=== PATIENT | male | born 1960 | race African-American/Black ===

== ENCOUNTER 2017-01-08 17:28 | Emergency (ER) | payer OTHER ==
[2017-01-08 17:58] LABS: MANUAL DIFF NEEDED? NO
[2017-01-08 18:42] LABS: ALBUMIN 3.9 g/dL (3.5-5.0); CALCIUM 10.3 mg/dL (8.8-10.2); POTASSIUM 4.4 mmol/L (3.5-5.1); TOTAL BILIRUBIN 0.87 mg/dL (0.20-1.00); TOTAL PROTEIN 7.5 g/dL (6.3-8.3)
--- NOTE | 2017-01-08 18:53 | PROVIDER DOCUMENTATION ---
HPI-Abdominal Pain/GI Problem - General Chief Complaint: Abdominal Pain Stated Complaint: NAUSEA/ABD PAIN Time Seen by Provider: 01/08/17 18:47 Source: patient Allergies/Adverse Reactions: Patient Allergies Allergy/AdvReac Type Severity Reaction Status Date / Time sulfamethoxazole AdvReac Severe SWELLING Verified 01/08/17 22:22 [From Bactrim] trimethoprim [From Bactrim] AdvReac Severe SWELLING Verified 01/08/17 22:22 Home Medications: Home Medication List Medication Instructions Recorded Confirmed Last Taken Type SIMVAstatin [Zocor] 40 mg PO DAILY 11/10/12 01/08/17 12/08/16 History Fluticasone/Salmet 250/50 INH 1 puff INH DAILY 10/12/15 01/08/17 12/08/16 History [Advair 250/50 Diskus] Insulin Detemir [Levemir] 30 unit SQ DAILY 07/20/16 01/08/17 01/07/17 20:00 History Calcium Acetate 667 mg PO DAILY 07/22/16 01/08/17 12/08/16 History Hydrocodone/Acetaminophen [[place] 1 each PO Q4H PRN PRN #20 tablet 12/09/1601/08 Unknown Rx 7.5-325 Tablet] Cinacalcet HCl [Sensipar] 30 mg PO DAILY 01/08/17 01/08/17 Unknown History Hydralazine [Apresoline] 25 mg PO TID 01/08/17 01/08/17 Unknown History Insulin Detemir [Levemir] 30 unit SQ QHS 01/08/17 01/08/17 Unknown History Isosorbide Mononitrate E.r. [Imdur] 30 mg PO TID 01/08/17 01/08/17 Unknown History Metoprolol [Lopressor] 50 mg PO DAILY 01/08/17 01/08/17 Unknown History Ondansetron [Zofran] 4 mg PO Q6H PRN PRN #30 tablet 01/08/17 Unknown Rx Pantoprazole [Protonix] 40 mg PO DAILY@0700 #30 tablet 01/08/17 Unknown Rx - History of Present Illness-ABD Nature of Presenting Problems: 56 y/o BM c/o abd. pain x [address] Canseco performed an upper GI endoscopy on 28 FEB 17. 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 States that he is nauseated and has pain in epigastric region. States has tried kaylan, apples, crackers, but nothing has helped. States 2-3 episodes of vomiting. Denies any D/C, fever/chills. Pt unsure about hx of GERD, upper GI bleed. Poor historian. Reports dialysis 3x weekly Review of Systems - Adult - REVIEW OF SYSTEMS - ADULT Constitutional: reports: no symptoms reported. denies: chills, fever Eyes: reports: no symptoms reported. denies: blurred vision, double vision Ears, Nose, Mouth & Throat: reports: no symptoms reported. denies: ear pain, nose pain Cardiovascular: reports: no symptoms reported. denies: chest pain, palpitations Respiratory: reports: no symptoms reported. denies: dyspnea on exertion, shortness of breath Gastrointestinal: reports: see HPI, abdominal pain, nausea, vomiting. denies: constipation, diarrhea Genitourinary: reports: no symptoms reported. denies: dysuria, frequency Musculoskeletal: reports: no symptoms reported. denies: joint pain, joint swelling Integumentary: reports: no symptoms reported. denies: nail changes, rash Neurological: reports: no symptoms reported. denies: numbness, paresthesia Psychiatric: reports: no symptoms reported Endocrine: reports: no symptoms reported. denies: cold intolerance, heat intolerance Hematologic/Lymphatic: reports: no symptoms reported. denies: easy bruising, prolonged bleeding Allergic/Immunologic: reports: no symptoms reported All Other Systems: Reviewed and Negative Past History - Adult - PAST MEDICAL HISTORY-ADULT Review of Records: reports: Nursing Assessment Review, Medications Reviewed Cardiovascular: reports: HTN, hyperlipidemia Respiratory: reports: sleep apnea Genitourinary: reports: dialysis, kidney disease Endocrine/Immune: reports: Diabetes - PRIOR SURGERIES/PROCEDURES Surgical/Procedure History: reports: appendectomy, other (left arm fistula) - IMMUNIZATION STATUS Childhood Immunizations: See Nurse Assessment Flu Vaccine: See Nurse Assessment - SOCIAL HISTORY Smoking: denies Alcohol Use Frequency: never Physical Exam-General - PHYSICAL EXAM-ADULT Initial Vital Signs Reviewed: Yes - CONSTITUTIONAL General Appearance: alert, mild distress - EYES Eyes: pink conjunctivae - HEAD, EARS, NOSE, MOUTH & THROAT HENMT: normocephalic/atraumatic, moist mucous membranes - NECK Neck: normal inspection - RESPIRATORY Respiratory: lungs clear, normal breath sounds. negative: crackles, rales, rhonchi, stridor, wheezing - CARDIOVASCULAR Cardiovascular: irregularly irregular. negative: bradycardia, tachycardia - GASTROINTESTINAL (ABDOMEN) Abdominal Exam: normal bowel sounds, soft, tenderness (mild, umbilicus). negative: distended, guarding, rigid, McBurney's point tenderness, Oscar's sign - MUSCULOSKELETAL Back Exam: no CVA tenderness Extremity: normal gait, normal inspection - SKIN Integumentary: normal color, normal turgor, warm/dry - NEUROLOGIC Neurologic: negative: aphasia - PSYCHIATRIC Psych/Mental Status: normal mood/affect, normal thought content, normal thought process, oriented x 3 Progress - PLAN OF CARE/RESULTS Progress/Plan/Lab Results: Laboratory Tests 01/08/17 01/08/17 17:48 17:48 WBC 6.58 RBC 2.80 L Hgb 8.9 L Hct 28.4 L MCV 101.4 H MCH 31.8 H MCHC 31.3 L RDW Std Deviation 18.5 H Plt Count 94 L MPV 10.9 H Immature Gran % (Auto) 0.0 Neut % (Auto) 71.5 Lymph % (Auto) 13.2 L Bull[place] % (Auto) 11.1 H Eos % (Auto) 3.6 Baso % (Auto) 0.6 Immature Gran # (Auto) 0.00 Neut # (Auto) 4.70 Lymph # (Auto) 0.87 L [place] # (Auto) 0.73 H Eos # (Auto) 0.24 Baso # (Auto) 0.04 Sodium 136 Potassium 4.4 Chloride 91 L Carbon Dioxide 26 Anion Gap 19 BUN 46 H Creatinine 7.3 H Estimated GFR/1.73 m2 9 BUN/Creatinine Ratio 6 Glucose 71 Calculated Osmolality 282 Calcium 10.3 H Total Bilirubin 0.87 AST 30 ALT 23 Alkaline Phosphatase 177 H Total Protein 7.5 Albumin 3.9 Globulin 3.6 Albumin/Globulin Ratio 1.1 Amylase 114 Lipase 31 Orders Category Date Time Status FLAT/UPRIGHT ABD/1 VIEW CHEST [RAD] Stat Exams 01/08/17 18:15 Completed AMYLASE [CHEM] Stat Lab 01/08/17 17:48 Completed CBC WITH ELECTRONIC DIFF [HEME] Stat Lab 01/08/17 17:48 Completed COMPREHENSIVE METABOLIC PANEL [CHEM] Stat Lab 01/08/17 17:48 Completed LIPASE [CHEM] Stat Lab 01/08/17 17:48 Completed Hydrocodone/APAP 10 mg/325 mg [[place]-10] Med 01/08/17 23:45 Discontinued 1 each PO NOW ONE Lido/Fish Alk/Al&mg Hydrox [G.i. Cocktail] Med 01/08/17 18:58 Discontinued 30 ml PO NOW ONE Ondansetron Odt [Zofran Odt] Med 01/08/17 18:58 Discontinued 4 mg PO NOW ONE Pantoprazole [Protonix] Med 01/08/17 23:45 Discontinued 40 mg PO NOW ONE Vital Signs Temp Pulse Resp BP Pulse Ox 01/09/17 00:10 98.7 F 112 H 18 127/84 97 01/08/17 17:38 98.8 F 88 20 129/78 100 sulfamethoxazole [From Bactrim] Adverse Reaction (Severe, Verified 01/08/17 22: 22) SWELLING caused renal failure trimethoprim [From Bactrim] Adverse Reaction (Severe, Verified 01/08/17 22:22) SWELLING caused renal failure SIMVAstatin [Zocor] 40 mg PO DAILY 11/10/12 Fluticasone/Salmet 250/50 INH [Advair 250/50 Diskus] 1 puff INH DAILY 10/12/15 Insulin Detemir [Levemir] 30 unit SQ DAILY 07/20/16 Calcium Acetate 667 mg PO DAILY 07/22/16 Hydrocodone/Acetaminophen [[place] 7.5-325 Tablet] 1 each PO Q4H PRN PRN #20 tablet 12/09/16 Cinacalcet HCl [Sensipar] 30 mg PO DAILY 01/08/17 Hydralazine [Apresoline] 25 mg PO TID 01/08/17 Insulin Detemir [Levemir] 30 unit SQ QHS 01/08/17 Isosorbide Mononitrate E.r. [Imdur] 30 mg PO TID 01/08/17 Metoprolol [Lopressor] 50 mg PO DAILY 01/08/17 Ondansetron [Zofran] 4 mg PO Q6H PRN PRN #30 tablet 01/08/17 Pantoprazole [Protonix] 40 mg PO DAILY@0700 #30 tablet 01/08/17 Laboratory 03/11/17 03/11/17 17:48 17:48 WBC 6.58 RBC 2.80 L Hgb 8.9 L Hct 28.4 L MCV 101.4 H MCH 31.8 H MCHC 31.3 L RDW Std Deviation 18.5 H Plt Count 94 L MPV 10.9 H Immature Gran % (Auto) 0.0 Neut % (Auto) 71.5 Lymph % (Auto) 13.2 L [place] % (Auto) 11.1 H Eos % (Auto) 3.6 Baso % (Auto) 0.6 Immature Gran # (Auto) 0.00 Neut # (Auto) 4.70 Lymph # (Auto) 0.87 L [place] # (Auto) 0.73 H Eos # (Auto) 0.24 Baso # (Auto) 0.04 Sodium 136 Potassium 4.4 Chloride 91 L Carbon Dioxide 26 Anion Gap 19 BUN 46 H Creatinine 7.3 H Estimated GFR/1.73 m2 9 BUN/Creatinine Ratio 6 Glucose 71 Calculated Osmolality 282 Calcium 10.3 H Total Bilirubin 0.87 AST 30 ALT 23 Alkaline Phosphatase 177 H Total Protein 7.5 Albumin 3.9 Globulin 3.6 Albumin/Globulin Ratio 1.1 Amylase 114 Lipase [address] Garcia, including hx, PE, labwork and Xrays; he agreed with d/c home and f/u to GI. Disucssed results and f/u with pt. - XRAY 1 XRAY Study: Chest, Abdomen Impression: See EMR Report (No acute abnormality, per Dr. Mack) Departure - Departure Time of Disposition Order: 23:46 DIAGNOSIS: Abdominal pain Qualifiers: Abdominal location: epigastric Qualified Code(s): R10.13 - Epigastric pain Disposition: HOME 01 Certified Medical Emergency: Emergent Condition: Stable Additional Instructions: Follow up with specialist for further management. Take medications as directed. ED Follow Up Instructions: You have been treated by a care provider in the Emergency Department. These instructions are being provided to you so you can have an understanding of how to care for yourself upon discharge. Upon discharge from the Emergency Department, you are responsible for making arrangements for follow-up care by a physician of your choice. Take all prescribed medications as directed. Return to the Emergency Department immediately for any new or worsening symptoms. You may call the Physician Referral phone number at [phone] to obtain a list of Physicians who are taking new patients. Prescriptions: Pantoprazole [Protonix] 40 mg PO DAILY@0700 #30 tablet Ondansetron [Zofran] 4 mg PO Q6H PRN PRN #30 tablet PRN Reason: Nausea Referrals: Dung Yap [Primary Care Provider] - Danilo Urbano MD [STAFF PHYSICIAN] - Instructions: Gastritis, Adult Attestation - Physician/ KRISTOFER Attestation Patient care was provided by Advanced Practice Provider:: Yes Advanced Practice Provider:: Dione Beasley Advanced Practice Provider documentation review:: The Mid-level provider documentation, treatment plan and medical decision making was reviewed by the physician who agrees with all treatment and medical decision making by the MLP.
[2017-01-08] MEDS ORDERED: ZOFRAN ODT PO ONE (18:58)
[2017-01-08] MEDS ORDERED: G.I. COCKTAIL PO ONE (18:58)
--- NOTE | 2017-01-08 19:05 | Diag Imaging Result Document ---
PROCEDURE NAME: FLAT/UPRIGHT ABD/1 VIEW CHEST - 01/08/2017 FLAT AND UPRIGHT AND CHEST, 3 VIEWS: COMPARISON: Chest is compared to 11/24/2016. There is a double lumen right-sided catheter. No pneumothorax. Cardiomegaly remains. The vessels are not distended. No pneumonia. No free air beneath the diaphragm. No bowel obstruction. No organomegaly. No abnormal abdominal or pelvic calcifications. IMPRESSION: No acute abnormality.
[2017-01-08 19:11] LABS: BASO% 0.6 % (0.0-0.8); EOS# 0.24 X1000 (0.0-0.7); EOS% 3.6 % (0.0-10.0); HEMATOCRIT 28.4 % (42.0-52.0); HEMOGLOBIN 8.9 g/dL (14.0-18.0); LYMPH# 0.87 X1000 (1.2-3.4); LYMPH% 13.2 % (20.5-51.1); MCH 31.8 PG (27-31); MCHC 31.3 g/dL (33-37); MCV 101.4 FL (81-99); MONO# 0.73 X1000 (0.11-0.59); MONO% 11.1 % (1.7-9.3); MPV 10.9 FL (7.4-10.4); NEUT% 71.5 % (42.2-75.2); PLT 94 X1000 (130-400)
[2017-01-08] MEDS ORDERED: PROTONIX PO ONE (23:45)
[2017-01-08] MEDS ORDERED: NORCO-10 PO ONE (23:45)
[2017-01-09 00:11] VITALS: BP 127/84
== END 2017-01-09 00:11 | disposition home or self-care (01) ==
LOC: ED 17:28
DX: R10.13 Epigastric pain (principal); R11.2 Nausea with vomiting, unspecified; R10.819 Abdominal tenderness, unspecified site; I10 Essential (primary) hypertension; E78.5 Hyperlipidemia, unspecified; E11.9 Type 2 diabetes mellitus without complications; Z79.51 Long term (current) use of inhaled steroids; Z79.899 Other long term (current) drug therapy; Z99.2 Dependence on renal dialysis
CPT/HCPCS: 74022; 80053; 82150; 83690; 85025; 99283

== ENCOUNTER 2017-08-17 12:11 | Inpatient (IN) ==
[2017-08-17] MEDS ORDERED: CARDIZEM IV ONE ×2 (12:42→14:33)
[2017-08-17 12:58] LABS: BASO% 0.3 % (0.0-0.8); EOS% 1.8 % (0.0-10.0); HEMATOCRIT 25.3 % (42.0-52.0); HEMOGLOBIN 8.1 g/dL (14.0-18.0); IMM GRAN# 0.03 X1000 (0.0-0.04); IMM GRAN% 0.3 % (0.0-0.5); LYMPH# 0.85 X1000 (1.2-3.4); LYMPH% 7.7 % (20.5-51.1); MANUAL DIFF NEEDED? YES; MCH 28.1 PG (27-31); MCV 87.8 FL (81-99); MONO# 1.21 X1000 (0.11-0.59); MPV 10.2 FL (7.4-10.4); NEUT% 78.9 % (42.2-75.2); PLT 209 X1000 (130-400); RBC 2.88 XMIL (4.7-6.1)
--- NOTE | 2017-08-17 12:59 | Diag Imaging Result Doc PS360 ---
EXAM: CHEST-1 VIEW HISTORY: afib w/ RVR TECHNIQUE: Portable upright COMPARISON: 01/08/2017 FINDINGS: The lungs are well expanded. The heart remains enlarged. There is no right-sided portacatheter on the current exam. No pneumothorax. The vessels are not distended. There are no infiltrates. No effusion identified. IMPRESSION: Persistent cardiomegaly. Electronically signed by Will Mack 08/17/2017 12:56 PM
[2017-08-17] MEDS ORDERED: PERCOCET-10 PO ONE (13:04)
[2017-08-17 13:18] LABS: EOS 2 % (1-10); LYMPHS 2 % (21-51); MONO 8 % (1-9)
[2017-08-17 13:37] LABS: ALBUMIN 3.2 g/dL (3.5-5.0); CALCIUM 9.1 mg/dL (8.8-10.2); POTASSIUM 3.4 mmol/L (3.5-5.1); TOTAL BILIRUBIN 0.88 mg/dL (0.20-1.00); TOTAL PROTEIN 7.6 g/dL (6.3-8.3)
[2017-08-17] MEDS: CARDIZEM 100 MG/NS 100 MG/100 ML IVPB IV SCH ×2 (15:54→21:17)
[2017-08-17 19:21] LABS: IRON SATURATION 15 %; TIBC 191 ug/dL; TOTAL IRON 28 ug/dL (53-167); UNBOUND IRON 163 ug/dL (112-346)
[2017-08-17] MEDS: HEPARIN SUBQ SCH (21:00)
[2017-08-17] MEDS: NS 250 ML IV SCH ×2 (21:18→22:46)
[2017-08-17] MEDS ORDERED: NS 500 ML ONE (21:21)
[2017-08-17] MEDS: HUMALOG SUBQ SCH (23:08)
[2017-08-18] MEDS: ULTRAM PO PRN ×2 (00:43→14:01)
[2017-08-18] MEDS: CARDIZEM 100 MG/NS 100 MG/100 ML IVPB IV SCH (02:05)
[2017-08-18 04:10] LABS: HEMATOCRIT 24.2 % (42.0-52.0); HEMOGLOBIN 7.6 g/dL (14.0-18.0); MCH 27.8 PG (27-31); MCHC 31.4 g/dL (33-37); MCV 88.6 FL (81-99); MPV 10.3 FL (7.4-10.4); RBC 2.73 XMIL (4.7-6.1)
[2017-08-18 04:14] LABS: HEMOGLOBIN A1C 4.3 % (4.8-6.0)
[2017-08-18 04:34] LABS: ALBUMIN 3.1 g/dL (3.5-5.0); CALCIUM 9.7 mg/dL (8.8-10.2); POTASSIUM 4.9 mmol/L (3.5-5.1)
--- NOTE | 2017-08-18 05:56 | EKG Report ---
Test Performed on : 08/17/2017 12:27:24 PM Test Reason : IRREGULAR FAST HR Blood Pressure : / mmHG Vent. Rate : 134 BPM Atrial Rate : 129 BPM P-R Int : 000 ms QRS Dur : 080 ms QT Int : 340 ms P-R-T Axes : 000 015 132 degrees QTc Int : 507 ms Atrial fibrillation. with rapid ventricular response. with premature ventricular or aberrantly condu cted complexes. Nonspecific T wave abnormality Abnormal ECG When compared with ECG of 24-NOV-2016 10:53, Atrial fibrillation. has replaced Atrial flutter. Nonspecific T wave abnormality, worse in Lateral leads Unconfirmed Result
[2017-08-18] MEDS: HUMALOG SUBQ SCH ×3 (06:28→16:31)
[2017-08-18] MEDS: HEPARIN SUBQ SCH (08:16)
[2017-08-18] MEDS ORDERED: SODIUM THIOSULFATE IV SCH ×2 (10:45→10:54)
[2017-08-18] MEDS ORDERED: DILUENT IV SCH ×2 (10:45→10:54)
[2017-08-18] MEDS ORDERED: LOPRESSOR PO SCH (10:45)
[2017-08-18] MEDS ORDERED: VENOFER 200 MG in NS 100 ML IV SCH (11:00)
[2017-08-18 16:51] VITALS: BP 136/79
[2017-08-18 16:55] LABS: INR 1.37; PROTIME 14.7 Seconds (9.2-11.7)
[2017-08-18] MEDS ORDERED: RENAGEL PO SCH (17:00)
[2017-08-18] MEDS ORDERED: IMDUR PO SCH (17:00)
[2017-08-18] MEDS ORDERED: COUMADIN PO SCH (21:00)
[2017-08-18] MEDS ORDERED: COLACE PO SCH (21:00)
[2017-08-18] MEDS ORDERED: ZOCOR PO SCH (21:00)
[2017-08-18] MEDS ORDERED: NEURONTIN PO SCH (21:00)
[2017-08-19] MEDS ORDERED: ADVAIR 250/50 DISKUS INH SCH (07:30)
[2017-08-19] MEDS ORDERED: EPOGEN SUBQ SCH (09:00)
[2017-08-19] MEDS ORDERED: SENSIPAR PO SCH (09:00)
[2017-08-19] MEDS ORDERED: COZAAR PO SCH (09:00)
== END 2017-08-18 18:30 | disposition home or self-care (01) ==
LOC: ED 12:11 → EDIPHOLD 16:48 → 3S 21:31
PROVIDERS: ATTEND Internal Medicine